=== PATIENT | female | born 1960 | race Two or more races ===

== ENCOUNTER 2019-03-04 06:00 | Day surgery (SDC) | payer OTHER ==
[~2019-03-04 06:00] MED LIST: FOLIC PO; LAMOTRIGINE100 MG PO; LEVOTHYROXINE25 MCG PO; TENORMIN25 MG PO
== END 2019-03-04 13:20 | disposition home or self-care (01) ==
LOC: CIR.AMB 06:00 → ADM 09:00 → CIR.AMB 13:20
DX: K64.8 Other hemorrhoids (principal); K64.4 Residual hemorrhoidal skin tags